=== PATIENT | male | born 1975 | race Caucasian/White ===

== ENCOUNTER 2018-09-26 17:45 | Emergency (ER) | payer BC ==
[2018-09-26 18:00] VITALS: BP 141/96
[2018-09-26] MEDS ORDERED: Sodium Chloride 0.9% 10 ML Syringe FLUSH PRN (18:08)
[2018-09-26] MEDS ORDERED: Sodium Chloride 0.9% 1,000 ML IV SCH ×2 (18:15→20:15)
--- NOTE | 2018-09-26 19:19 | CT ---
Head CT Technique: Multiple axial sections through the brain were obtained. Intravenous contrast was not utilized. Comparison: No prior intracranial imaging. Findings: Ventricles along with basal cisterns and sulci over the convexities are within normal limits for the patient's age. No abnormal parenchymal densities are seen. No evidence of intracranial hemorrhage. No midline shift or mass effect is seen. Bone window settings were reviewed which shows no acute calvarial abnormality. Visualized sinuses are clear. Impression: 1. No abnormality is appreciated on noncontrast head CT study. Diagnostic code #1
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
== END 2018-09-26 20:29 | disposition left against medical advice (07) ==
LOC: JD.ED 17:45
DX: R41.82 Altered mental status, unspecified (principal); Z88.0 Allergy status to penicillin
CPT/HCPCS: 36415; 70450; 80053; 80306; 84484; 85025; 93005; 96360; 99285; G0480; J7040; 93010; 99284